=== PATIENT | female | born 1990 | race American Indian/Alaskan Native ===

== ENCOUNTER 2020-04-01 15:00 | Emergency (ER) | payer OTHER ==
[2020-04-01 18:18] VITALS: BP 147/99
--- NOTE | 2020-04-01 18:47 | Emergency Department Report ---
Chief Complaint: High BP Stated Complaint: BLOOD PRESSURE CHECK Time Seen by Provider: 04/01/20 18:15 - HPI History of Present Illness: Patient is a 29-year-old male who presents emergency room with complaints of a epistaxis that occurred today while at work. She states that she did not have the bleeding very long just a minute or two. She states that she was concerned that her blood pressure was elevated. She states that this occurred while she was at work and her bankruptcy manager sent her home and wanted her to follow-up with a doctor. She denies any nausea, vomiting, diarrhea, fever, shortness of breath, chest pain, headache, numbness, weakness. She states that she has not taken her blood pressure medications in a couple of months. She states that she does have a primary care doctor but has not yet seen them. Initial blood pressure with very mild elevation, improved upon repeat without intervention On exam: Non toxic appearing, no acute distress atraumatic, normocephalic normal appearance of the eyes, PERRL, EOMI, no periorbital edema or ecchymosis moist mucus membranes, normal nasal turbinates, no epistaxis, no dried blood, no active bleeding regular heart rate and rhythm, no gallops, no rubs, no murmurs breath sounds are clear bilaterally, no w/r/r A&O x4, no focal neuro deficit skin is warm, dry, intact Patient is not having any symptoms at all currently Patient will be referred to a primary care doctor Discussed strict return precautions advised pt Please follow-up with a primary care doctor. Please take your blood pressure 3 times a day and keep a blood pressure log and take this to the primary care doctor. Please eat a low-sodium diet. Incorporate 30 minutes of daily exercise. Increase your water intake. Return to the emergency room for any new or worsening symptoms. Medical screening examination performed there is no threat to life or limb at this time - Exam Vital Signs: Vital Signs 04/01/20 04/01/20 04/01/20 15:35 16:52 18:17 Temperature 98.2 F 98.2 F Pulse Rate 88 83 58 L Respiratory 14 16 Rate Blood Pressure 154/106 Blood Pressure 154/106 147/99 [Left] O2 Sat by Pulse 99 99 Oximetry MSE screening note: Focused history and physical exam performed. ED Disposition for MSE Clinical Impression: Epistaxis, Elevated blood pressure reading Disposition: Z- MED SCREENING EXAM-LEFT Is pt being admited?: No Does the pt Need Aspirin: No Condition: Stable Instructions: Chronic Hypertension (ED) Additional Instructions: Please follow-up with a primary care doctor. Please take your blood pressure 3 times a day and keep a blood pressure log and take this to the primary care doctor. Please eat a low-sodium diet. Incorporate 30 minutes of daily exercise. Increase your water intake. Return to the emergency room for any new or worsening symptoms. Referrals: JOSSUE GUZMAN MD [Primary Care Provider] - 2-3 Days SEAN CONTE MD [Staff Physician] - 2-3 Days [facility] [Provider Group] - 2-3 Days JUAN J SCHAEFER MD [Staff Physician] - 2-3 Days Time of Disposition: 18:45 Print Language: [id number]
== END 2020-04-01 19:00 | disposition left against medical advice (07) ==
LOC: ED 15:00
DX: R04.0 Epistaxis (principal); I10 Essential (primary) hypertension; J45.909 Unspecified asthma, uncomplicated; Z98.890 Other specified postprocedural states; Z88.1 Allergy status to other antibiotic agents; Z91.018 Allergy to other foods
CPT/HCPCS: 99282

== ENCOUNTER 2020-08-20 14:20 | Emergency (ER) | payer OTHER ==
[2020-08-20 14:49] VITALS: BP 145/90
== END 2020-08-20 15:00 | disposition left against medical advice (07) ==
LOC: ED 14:20
DX: M54.2 Cervicalgia (principal); M25.512 Pain in left shoulder; R20.2 Paresthesia of skin; Z53.21 Procedure and treatment not carried out due to patient leaving prior to being seen by health care provider